=== PATIENT | male | born 1980 | race Caucasian/White ===

== ENCOUNTER 2020-04-16 17:35 | Emergency (ER) | payer OTHER ==
[~2020-04-16] VITALS: Ht 188 cm; Wt 115.9 kg
[2020-04-16 18:41] LABS: HEMOGLOBIN 15.6 g/dl (14.0-18.0); IMMATURE GRANULOCYTES 0.3 % (0.0-5.0); MEAN CELL VOLUME 84.4 fL CALC (80.0-100.0); MEAN CORPUSCULAR HGB 29.3 pG CALC (26.0-32.0); MEAN CORPUSCULAR HGB CONC 34.7 g/dL CAL (32.0-36.0); NEUT# 5.8 thou/uL (1.82-7.42); RED BLOOD COUNT 5.33 mill/uL (4.70-6.10); RED CELL DISTRI WIDTH 11.7 % (11.5-15.5)
[2020-04-16 19:00] LABS: ALBUMIN 4.7 g/dL (3.2-5.0); ALKALINE PHOSPHATASE 57 u/l (38-126); AMYLASE 37 u/l (30-110); ANION GAP 15 (6-22 (CALC)); BILIRUBIN, TOTAL 1.5 mg/dL (0.0-1.4); BUN 17 mg/dL (9-20); BUN/CREATININE RATIO 15 (12-20 (CALC)); CARBON DIOXIDE 27 mmol/l (22-30); CHLORIDE 99 mmol/l (95-108); CREATININE 1.1 mg/dL (0.7-1.3); GFR > 60 ML/MIN (>=60 (CALC)); GFR FOR AFR.AMER. > 60 ML/MIN (>=60 (CALC)); LIPASE 73 u/l (23-300); SGOT/AST 34 u/l (17-59); SODIUM 137 mmol/l (137-146); TOTAL PROTEIN 7.9 g/dL (6.3-8.2)
[2020-04-16] MEDS ORDERED: ZOFRAN4 MG/TAB PO (19:43)
[2020-04-16 19:44] VITALS: BP 146/68
== END 2020-04-16 19:56 | disposition home or self-care (01) | DRG 179 ==
LOC: ED 17:35
DX: U07.1 COVID-19 (principal); R19.7 Diarrhea, unspecified; R11.2 Nausea with vomiting, unspecified; R52 Pain, unspecified; R43.9 Unspecified disturbances of smell and taste

== ENCOUNTER 2024-05-27 03:11 | Emergency (ER) | payer OTHER ==
[~2024-05-27] VITALS: Ht 188 cm; Wt 98.0 kg
[~2024-05-27 03:11] MED LIST: ZOFRAN4 MG/TAB PO
[2024-05-27 04:38] LABS: URINE BILIRUBIN - DIPSTICK Negative (NEGATIVE); URINE BLOOD DIPSTICK Moderate (NEGATIVE); URINE GLUCOSE - DIPSTICK Negative (NEGATIVE); URINE KETONE Negative (NEGATIVE); URINE LEUK ESTERASE Negative (NEGATIVE); URINE NITRITE - DIPSTICK Negative (Negative); URINE PROTEIN - DIPSTICK Negative (NEG-TRACE); URINE SPECIFIC GRAVITY 1.025; URINE UROBILINOGEN - DIPSTICK 0.2 E.U./dL (0.2)
[2024-05-27 04:39] LABS: URINE COLOR Yellow
[2024-05-27 04:55] LABS: URINE MUCUS MANY hpf (NONE-FEW); URINE RBC 25-50 RBC/hpf (0-5); URINE SQUAMOUS EPITHELIAL CELL FEW EPI/hpf (0-FEW)
[2024-05-27 05:38] VITALS: BP 124/86
== END 2024-05-27 05:40 | disposition home or self-care (01) | DRG 696 ==
LOC: ED 03:11
PROVIDERS: Emergency Medicine
DX: R31.9 Hematuria, unspecified (principal); I10 Essential (primary) hypertension